=== PATIENT | female | born 1975 | race Caucasian/White ===

== ENCOUNTER → 2016-09-24 | Outpatient (CLI) | payer BC ==
[~2016-09-24] MED LIST: BIRTH CONTROL PO; FLUO20CA30 PO; GADOBUTROL 10mMol/10ml INJECTION IV ONE; ONDA4TAB7 PO; SALINE FLUSH 10ml SYRINGE ONE
--- NOTE | 2016-09-24 12:08 | DI ---
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 Contrast: 7.5 mL of Gadavist FINDINGS: The 1.9 x 1.4 cm intrinsically high T1 signal intensity mass in the right cerebellopontine angle is again noted and unchanged in appearance. The right cranial nerves VII and VIII again coarse through this lesion without evidence of significant deviation. There is intracanalicular extension of the mass best seen on axial T2 3-D image #13 with an area of slightly differential signal intensity. This is more T2 hypointense and T1 isointense than the main mass. This lesion does not enhance. The ventricles are of normal size, shape, and contour for the patient's age. The brain stem, cerebellum, and cerebral hemispheres otherwise have a normal morphologic appearance as well as MR signal intensity on all pulse sequences. Following intravenous administration of contrast, no areas of abnormal enhancement are evident. There are no areas of restricted diffusion to suggest an acute infarct. There is no evidence of an intracranial hemorrhage, or hydrocephalus. The visualized portions of the orbits, calvarium, paranasal sinuses, and skull base demonstrate no significant abnormality. 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 The overall appearance is stable. .
== END ==
LOC: IMA 09:54
PROVIDERS: ATTEND Neurological Surgery
DX: E88.2 Lipomatosis, not elsewhere classified (principal)